=== PATIENT | female | born 1985 | race Caucasian/White ===

== ENCOUNTER 2017-02-08 21:06 | Emergency (ER) | payer OTHER ==
[2017-02-08 23:15] VITALS: BP 124/76
== END 2017-02-09 00:12 | disposition home or self-care (01) ==
LOC: ED 21:06
DX: S06.0X0A Concussion without loss of consciousness, initial encounter (principal); W22.8XXA Striking against or struck by other objects, initial encounter; Y93.89 Activity, other specified; Y99.8 Other external cause status; Y92.89 Other specified places as the place of occurrence of the external cause